=== PATIENT | female | born 1945 | race Caucasian/White ===

== ENCOUNTER → 2016-10-15 | Outpatient (CLI) | payer MEDICARE ==
[~2016-10-15] MED LIST: ACET325T14 PO; AMIO200T42 PO; CALCIUM; CARV-39 PO; CARV12.52 PO; CARV12.543 PO; CARV25TA12 PO; DIGO125T PO; DIGO250T PO; FISH OIL; FURO-92 PO; RAMI10CA PO; RAMI2.5C PO; VIT D3; WARF2.5T PO; WARF3TAB PO; WARF5TAB PO
[2016-10-15 08:38] LABS: ASPARTATE AMINO TRANSFERASE 16 U/L (15-37); BLOOD UREA NITROGEN 37 mg/dL (7-18)
== END | disposition home or self-care (01) ==
LOC: LAB 08:10
PROVIDERS: ATTEND Internal Medicine Cardiovascular Disease
DX: I10 Essential (primary) hypertension (principal); I48.91 Unspecified atrial fibrillation
CPT/HCPCS: 36415; 80053; 83880; 85610; 85730

== ENCOUNTER → 2017-08-29 | Outpatient (CLI) | payer MEDICARE ==
[~2017-08-29] MED LIST changes: +CARV3.12 PO; +FURO-93 PO; +SPIR25TA3 PO; +WARF1TAB PO
[2017-08-29 15:09] LABS: ALANINE AMINOTRANSFERASE 28 U/L (12-78); ALBUMIN 4.7 g/dL (3.4-5.0); ANION GAP 9 mmol/L (5-15); CALCIUM 9.9 mg/dL (8.5-10.1); CHLORIDE 97 mmol/L (98-107); CREATININE 1.41 mg/dL (0.55-1.02)
[2017-08-29 15:18] LABS: ALKALINE PHOSPHATASE 75 U/L (45-117); BILIRUBIN,TOTAL 0.8 mg/dL (0.2-1.0); TOTAL PROTEIN 8.8 g/dL (6.4-8.2)
== END | disposition home or self-care (01) ==
LOC: LAB 14:40
PROVIDERS: ATTEND Nurse Practitioner Primary Care
DX: Z12.11 Encounter for screening for malignant neoplasm of colon (principal); Z13.820 Encounter for screening for osteoporosis; Z13.220 Encounter for screening for lipoid disorders; Z12.31 Encounter for screening mammogram for malignant neoplasm of breast; Z12.4 Encounter for screening for malignant neoplasm of cervix; E03.9 Hypothyroidism, unspecified; R18.8 Other ascites; I48.2 Chronic atrial fibrillation; I12.9 Hypertensive chronic kidney disease with stage 1 through stage 4 chronic kidney disease, or unspecified chronic kidney disease; N18.9 Chronic kidney disease, unspecified; I27.20 Pulmonary hypertension, unspecified; K74.69 Other cirrhosis of liver; E78.1 Pure hyperglyceridemia
CPT/HCPCS: 36415; 80053; 84443

== ENCOUNTER → 2018-02-11 | Outpatient (CLI) | payer MEDICARE ==
[~2018-02-11] MED LIST changes: -SPIR25TA3 PO; +SPIR25TA5 PO
[2018-02-11 08:17] LABS: ANION GAP 6 mmol/L (5-15); CALCIUM 9.6 mg/dL (8.5-10.1); CHLORIDE 100 mmol/L (98-107); CREATININE 1.32 mg/dL (0.55-1.02)
== END | disposition home or self-care (01) ==
LOC: LAB 07:48
PROVIDERS: ATTEND Internal Medicine Gastroenterology
DX: Z00.01 Encounter for general adult medical examination with abnormal findings (principal); Z13.820 Encounter for screening for osteoporosis; Z12.31 Encounter for screening mammogram for malignant neoplasm of breast; Z12.11 Encounter for screening for malignant neoplasm of colon; Z12.4 Encounter for screening for malignant neoplasm of cervix; Z13.220 Encounter for screening for lipoid disorders; I12.9 Hypertensive chronic kidney disease with stage 1 through stage 4 chronic kidney disease, or unspecified chronic kidney disease; N18.9 Chronic kidney disease, unspecified; I48.2 Chronic atrial fibrillation; I27.20 Pulmonary hypertension, unspecified; E78.5 Hyperlipidemia, unspecified; K74.69 Other cirrhosis of liver; R18.8 Other ascites; E03.9 Hypothyroidism, unspecified; E78.1 Pure hyperglyceridemia; Z95.0 Presence of cardiac pacemaker; Z79.01 Long term (current) use of anticoagulants
CPT/HCPCS: 36415; 80048; 82140; 84443